=== PATIENT | female | born 1940 | race Caucasian/White ===

== ENCOUNTER 2023-10-14 14:08 | Inpatient (IN) | payer OTHER, SELFPAY ==
[2023-10-14] VITALS (24 sets, daily range): BP systolic 81–116; BP diastolic 58–89; PULSE 97–182; RESP 14–26; TEMP 35.8–37.3; O2SAT 92–98; BMI 17.2; BMI 16.6
--- NOTE | 2023-10-14 14:31 | CT_ITS ---
EXAM: CT ABDOMEN AND PELVIS WITH INTRAVENOUS CONTRAST CLINICAL INDICATION: abdominal pain TECHNIQUE: Helically acquired images were obtained of the abdomen and pelvis with intravenous contrast. This CT exam was performed using one or more of the following dose reduction techniques: automated exposure control, adjustment of the mA and/or kV according to patient size, and/or use of iterative reconstruction technique. CONTRAST: IV 75mL Isovue-300 RADIATION DOSE: CTDIvol = 10.83 mGy, DLP = 236.43 mGy-cm COMPARISON: No relevant prior studies available. FINDINGS: LOWER THORAX: Lung bases show fibrotic changes and possible mild infiltrates in both lung bases worse on the right. 6.6 cm heterogeneous mass in the right breast. Malignancy is possible. No cardiomegaly. No significant pericardial effusion. ABDOMEN: LIVER: Hepatomegaly. No focal mass. Otherwise unremarkable liver. GALLBLADDER AND BILE DUCTS: Unremarkable. No calcified gallstones. No gallbladder distention or wall edema. No intra- or extrahepatic biliary ductal dilation. PANCREAS: Unremarkable. No focal cystic or solid mass. SPLEEN: Unremarkable. Normal size without focal cystic or solid mass. ADRENALS: Unremarkable. No nodules. KIDNEYS AND URETERS: Unremarkable. Normal renal size and position. No hydronephrosis. STOMACH AND BOWEL: Evaluation of the GI tract is limited by absence of oral contrast. Cannot exclude stomach wall thickening. No dilated loops of bowel or evidence for obstruction. Cannot exclude segmental thickening of the schrader of the small or large bowel. Cannot exclude enteritis or colitis. Moderate diffuse fecal retention. Probable fecal impaction in the rectum. PELVIS: APPENDIX: No evidence of acute appendicitis. BLADDER: Unremarkable. REPRODUCTIVE: Atrophic uterus. ABDOMEN and PELVIS: INTRAPERITONEAL SPACE: Unremarkable. No ascites or other fluid collection. No free air. BONES/JOINTS: Degenerative changes throughout the spine. Compression fractures of T11, T12, L1, and L2 of indeterminate age. Mild dextroconvex scoliosis. No suspicious lytic or blastic abnormality. SOFT TISSUES: No discrete abdominal or pelvic wall hernia. VASCULATURE: Tortuous aorta with calcifications. No aneurysm. LYMPH NODES: Unremarkable. No enlarged lymph nodes. CT/Abdomen/Pelvis W IV Cont ONLY IMPRESSION: 1. Mass of the right breast. Malignancy is likely 2. Evaluation of the GI tract limited by absence of oral contrast. Fecal retention. Probable fecal impaction in the rectum. 3. Lung bases show fibrotic changes and possible mild infiltrates in both lung bases worse on the right. Electronically Signed: Jin Lewis MD at 16:59 EDT ,
--- NOTE | 2023-10-14 14:33 | EDS_ITS ---
HPI HPI - GI History of Present Illness Chief Complaint: GI Bleed Narrative Narrative: 83-year-old female presents with her family because of nausea, vomiting, and dark stool. Her history and physical is mildly limited secondary to her age and generalized weakness. Her family presents her because he states that yesterday and today she began having vomiting with coffee-ground emesis, and she has had episodes of dark stool, but not black. They had a doctor out to see her and they think that she might have a bleeding ulcer. They state that she is very weak and may also be dehydrated. They present her because they think that she might need transfusion of blood. Patient denies any chest pain or shortness of breath. States she is not really having abdominal pain currently. She is presenting more now for generalized weakness. [facility] Medical History (Updated 10/14/23 @ 18:02 by Nabil Cutler MD) Emphysema of lung Allergy/AdvReac Type Severity Reaction Status Date / Time No Known Allergies Allergy Verified 10/14/23 14:18 Social History Smoking Status: Never smoker ROS ROS ED ROS Narrative Provided by family more than patient. Constitutional: No fever, no chills. Positive generalized weakness. HEENT: No sore throat. No neck pain. No loss of vision. No rhinorrhea. Cardiovascular: No chest pain. No palpitations. No pedal edema. Respiratory: No cough, no shortness of breath. Abdominal: No abdominal pain. Positive nausea and vomiting for the last 24 hours, coffee-ground. Positive dark stool. Genitourinary: No dysuria. No hematuria. Musculoskeletal: No myalgias. No arthralgias. Neurologic: No headaches. No dizziness. No lightheadedness. Skin: No rash. No change in color. Psychiatric: No depression. No anxiety. EXAM Physical Exam Narrative Exam Narrative: Afebrile. Vital signs noted. Intermittently interactive. HEENT: Normocephalic. Atraumatic. PERRL, EOMI. Neck soft and supple. No point tenderness or step off. Dried blood bilateral nares. Cardiovascular: Positive tachycardia no murmurs, rubs, or gallops appreciated. Respiratory: No tachypnea. Lungs clear to auscultation bilaterally. Gastrointestinal: Abdomen soft, nontender, with normoactive bowel sounds. No rebound or guarding. Neurological: Awake intermittently. Alert. Nonfocal, nonlateralizing. Skin: No rash. Normal color. Mild pallor. Musculoskeletal: No pedal edema. Full range of motion extremities. Const Vital Signs: 10/14/23 14:12 10/14/23 15:00 10/14/23 15:30 Temperature 97.7 F L Temperature Source Oral Pulse Rate 131 H 127 H 182 H Respiratory Rate 15 24 H 26 H Blood Pressure 107/89 H 98/63 105/68 Blood Pressure Mean 95 73 80 Pulse Ox 94 97 Oxygen Delivery Method Room Air 10/14/23 15:30 10/14/23 15:45 10/14/23 16:00 Temperature Temperature Source Pulse Rate 143 H 122 H Respiratory Rate 25 H 25 H Blood Pressure 105/68 112/89 H 90/63 Blood Pressure Mean 80 98 73 Pulse Ox 94 98 Oxygen Delivery Method Room Air Room Air 10/14/23 16:15 10/14/23 16:30 10/14/23 16:45 Temperature Temperature Source Pulse Rate 127 H 119 H 106 H Respiratory Rate 21 H 25 H 24 H Blood Pressure 101/65 100/86 H 84/60 L Blood Pressure Mean 77 93 68 Pulse Ox 96 95 96 Oxygen Delivery Method Room Air Room Air 10/14/23 17:00 10/14/23 17:32 10/14/23 17:33 Temperature 99.1 F 99.1 F Temperature Source Oral Pulse Rate 105 H 114 H 114 H Respiratory Rate 22 H 19 H 19 H Blood Pressure 97/77 111/67 111/67 Blood Pressure Mean 83 81 81 Pulse Ox 95 97 94 Oxygen Delivery Method Room Air 10/14/23 17:34 Temperature Temperature Source Pulse Rate 114 H Respiratory Rate 19 H Blood Pressure 111/67 Blood Pressure Mean 81 Pulse Ox 94 Oxygen Delivery Method Room Air MDM MDM MDM Narrative Medical decision making narrative: Concern is for upper GI bleed versus dehydration. Patient is tachycardic. EKG was obtained and interpreted by myself independently which demonstrates sinus tachycardia with PVCs at 119 bpm but no acute ST changes. There is a right bundle branch block. No STEMI. Patient be bolused IV fluids. I do feel CT is indicated. I explained to the patient and her family that with concern for bleeding peptic ulcer that and she would need to be inserted as well. However, RN reported difficulty with patient coughing a lot with insertion of NG tube. They did place the NG tube and obtained a KUB. KUB interpreted by myself independently shows that the tip of the NG tube is just past the GE junction. I reviewed the radiology report which confirms my independent interpretation. However, RN had concern that it was not in the right place and did not aspirate gastric contents, so she pulled the NG. Patient is unable to tolerate placement. I reviewed her laboratory work and she has a slightly elevated white count of 13.5 which I think is nonspecific, hemoglobin does show anemia at 8.1 but I do not feel she requires an emergent transfusion, hematocrit 24.6. Platelet count normal at 216. Electrolyte panel is grossly unremarkable except for glucose of 121 with a normal anion gap of 5. BUN is elevated at 78 with a creatinine of 0.9 consistent with dehydration. This reflects in her lactic acidosis of 3.0. I do not feel that this is sepsis although she is meeting SIRS criteria with an elevated white count and a tach ycardia. Her repeat heart rate after bolus initially was 106. She will be bolused a second liter of intravenous fluids for her lactic acidosis. I reviewed the CT report which shows thickening of the stomach wall consistent with gastritis and possible thickening of the small bowel. There is a large amount of feces in the rectal area. Chaperoned rectal examination was performed and she does have very dark brown stool which was sent for occult blood. In review of the Hemoccult test, it is negative. At this point in time, she is a fluctuating blood pressure, I will draw blood cultures and administer Zosyn. However, I do not feel that she is meeting any source of sepsis as review of her urinalysis does not show infection. I discussed patient with Dr. Boykin who is comfortable with ad mission to the medical surgical floor. Patient is in stable condition. History & Record Review Discussion w/independent historian: Patient and Family Additional record(s) reviewed:: No prior records Lab Data Attestation: I reviewed the patient's lab results. Labs: Laboratory Results - last 24 hr 10/14/23 10/14/23 14:50 16:25 WBC 13.5 H RBC 2.61 L Hgb 8.1 L Hct 24.6 L MCV 94.3 MCH 31.0 MCHC 32.9 RDW Std Deviation 51.3 H RDW Coeff of John 14.9 H Plt Count 216 MPV 9.5 Immature Gran % (Auto) 0.600 Neut % (Auto) 81.5 H Lymph % (Auto) 12.6 L [place] % (Auto) 5.2 Eos % (Auto) 0.0 Baso % (Auto) 0.1 Absolute Neuts (auto) 11.0 H Absolute Lymphs (auto) 1.71 Nucleated RBC % 0 Sodium 136 Potassium 4.4 Chloride 103 Carbon Dioxide 28.0 Anion Gap 5 BUN 78 H Creatinine 0.91 Estim Creat Clear Calc 34.61 Est GFR (MDRD) Af Amer 76 Est GFR (MDRD) Non-Af 63 BUN/Creatinine Ratio 86.1 H Glucose 121 H Lactic Acid 3.0 H* Calcium 8.7 Total Bilirubin 0.30 AST 22 ALT 20 Alkaline Phosphatase 36 L Total Protein 6.1 L Albumin 2.6 L Globulin 3.5 Albumin/Globulin Ratio 0.7 L Urine Color Straw Urine Clarity Clear Urine pH 5.0 Ur Specific [place] 1.010 Urine Protein Negative Urine Glucose (UA) Normal Urine Ketones Negative Urine Occult Blood Negative Urine Nitrite Negative Urine Bilirubin Negative Urine Urobilinogen Normal Ur Leukocyte Esterase Negative Urine RBC 0 SEEN Urine WBC 0 SEEN Ur Squamous Epith Cells 0 SEEN Urine Bacteria 0 SEEN Urine Mucus 0 SEEN Radiography Diagnostic Testing: Clinical Impression(s) from Imaging Studies Abdomen/Pelvis CT 10/14/23 14:31 IMPRESSION: 1. Mass of the right breast. Malignancy is likely 2. Evaluation of the GI tract limited by absence of oral contrast. Fecal retention. Probable fecal impaction in the rectum. 3. Lung bases show fibrotic changes and possible mild infiltrates in both lung bases worse on the right. Electronically Signed: Jin Lewis MD at 16:59 EDT , KUB X-Ray 10/14/23 15:20 IMPRESSION: The tip of the orogastric tube is in the body of the stomach just distal to the gastroesophageal junction. Electronically Signed: Ottoniel Jackson MD at 15:41 EDT , Discharge Plan Dx/Rx/DC Orders Clinical Impression: Generalized weakness, Lactic acidosis, Gastritis, Nausea and vomiting, Dehydration Disposition Disposition: Acute Care Hospital [facility]
[2023-10-14] MEDS: 0.9% Normal Saline (1000mL) 1,000 ML 1000 ML IV (14:55)
[2023-10-14 15:04] LABS: Absolute Lymphocyte Count 1.71 X10^3/uL (0.83-4.51); Basophil# 0.02 X10^3/uL; Basophil% 0.1 % (0-1); Hematocrit 24.6 % (37-47); Hemoglobin 8.1 g/dL (12.0-15.0); Lymphocyte # 1.71 X10^3/ul (0.83-4.51); Lymphocyte % 12.6 % (19-41); Mean Corp Hgb Conc 32.9 g/dL (32-36); Mean Corpuscular Volume 94.3 fL (81-99); Mean Platelet Vol. 9.5 fl (6.2-12.0); Monocyte% 5.2 % (0-10); NRBC Flagged by Analyzer 0 % (0-5); Neutrophil # 11.01 X10^3/uL (2.7-7.7); Neutrophil % 81.5 % (47-70); Platelet Count 216 K/mm3 (150-450); RBC Distribution Width CV 14.9 % (11.6-14.6); RBC Distribution Width SD 51.3 fl (35.1-43.9); Red Blood Count 2.61 M/mm3 (4.2-5.4); White Blood Count 13.5 K/mm3 (4.4-11.0)
[2023-10-14] MEDS: Oxymetazoline 0.05% 1 SPRAY SPRAY.BTL 2 SPRAY NASAL (15:20)
--- NOTE | 2023-10-14 15:20 | RAD_ITS ---
STUDY: X-RAY - ABDOMEN/PELVIS REASON FOR EXAM: Female, 83 years old. Tube placement -- KUB with both diaphragms for NG/OG Verification TECHNIQUE: AP supine and decubitus views of the abdomen and pelvis. COMPARISON: None. FINDINGS: An orogastric tube is seen with the tip in the body of the stomach just distal to the gastroesophageal junction. Mild increased markings in the upper lobes suggestive scarring. RAD/Abdomen Single View (Portable) IMPRESSION: The tip of the orogastric tube is in the body of the stomach just distal to the gastroesophageal junction. Electronically Signed: Ottoniel Jackson MD at 15:41 EDT ,
[2023-10-14 15:26] LABS: ALB/GLOB Ratio 0.7 RATIO (0.9-2.4); AST(SGOT) 22 U/L (15-37); Alanine Aminotransfer ALT/SGPT 20 U/L (13-56); Albumin, Serum 2.6 g/dL (3.2-5.0); Alkaline Phosphatase 36 U/L (45-117); Anion Gap 5 (5-15); BUN 78 mg/dL (7-18); BUN/Creat Ratio 86.1 RATIO (10-20); Calcium,Total 8.7 mg/dL (8.5-10.1); Chloride 103 mmol/L (98-107); Creatinine, Serum 0.91 mg/dL (0.55-1.02); EST Glomerular Filtration Rate 63 mL/min (>60); Est Glom Filt Rate - Afr Amer 76 mL/min (>60); Estimated Creatinine Clearance 34.61 ml/min; Globulin 3.5 g/dL (2.2-4.2); Glucose 121 mg/dL (74-106); Potassium 4.4 mmol/L (3.5-5.1); Protein, Total 6.1 g/dL (6.4-8.2); Sodium Level 136 mmol/L (136-145)
--- NOTE | 2023-10-14 15:41 | ED.RN ---
ATTEMPTED TO PLACE NG UNSUCCESSFULLY, PT UNABLE TO SWALLOW ON COMMAND, MD AWARE
--- NOTE | 2023-10-14 16:10 | EKG12_ITS ---
Test Reason : FALL Blood Pressure : / mmHG Vent. Rate : 119 BPM Atrial Rate : 119 BPM P-R Int : 144 ms QRS Dur : 118 ms QT Int : 324 ms P-R-T Axes : 069 266 048 degrees QTc Int : 455 ms Sinus tachycardia with occasional Premature ventricular complexes and Fusion complexes Right bundle branch block Possible Lateral infarct , age undetermined Abnormal ECG Confirmed by Mayank Butt ([id number]), online editor CHHAYA DINH ([id number]) on 10/16/2023 7:17:55 AM Referred By: JOSE Confirmed By:Mayank Butt
--- NOTE | 2023-10-14 16:21 | ED.RN ---
NO OLD EKG
[2023-10-14 16:37] LABS: Bacteria 0 SEEN /hpf (None Seen); Mucous, Urine 0 SEEN /hpf (<or=2+); Red Blood Cells-Urine 0 SEEN /hpf (0-5); Squamous Epithelial Cells - UA 0 SEEN /hpf (5-10); White Blood Cells 0 SEEN /hpf (0-5)
[2023-10-14] MEDS: 0.9% Normal Saline (1000mL) 1,000 ML 999 ML IV (16:50)
[2023-10-14 16:55] LABS: Color, Urine Straw (Yellow); Glucose, Dipstick Normal (Normal); Ketone-Dipstick Negative (Negative); Leukocyte Esterase-Dipstick Negative /ul (Negative); Nitrite-Dipstick Negative (Negative); Occult Blood-Urine Negative /ul (Negative); Protein-Dipstick Negative (Negative); Urine Bilirubin Dipstick Negative (Negative); Urine Clarity Clear (Clear); Urine Urobilinogen Normal (Normal)
[2023-10-14] MEDS: Piperacil/Tazobactam 3.375 GM in 0.9% Normal Saline (50mL MB+) 50 ML IV (18:21)
[2023-10-14 19:00] LABS: Reflex Lactate? Y
--- NOTE | 2023-10-14 19:33 | PCM.HP.STD ---
HPI - General General Date of Admission: 10/14/23 HPI Narrative TORI ROSS, is a 83 F who presents to the hospital from home after dark bowel movement as well as coffee-ground emesis. Apparently she had an episode of coffee-ground emesis last evening and this morning family noticed dark stools. Family is also stated that she does appear little pale and so they presented to the hospital for possible transfusions. Fecal occult was negative in the ER and her hemoglobin is 8.1, we do not have a prior to check however she has been tachycardic and there is some concern for sepsis though there is currently no signs of infection her lactic acid was 3 and she was given a dose of Zosyn in the ER. Urine studies are negative, CT of the abdomen pelvis was negative for any significant intra-abdominal pathology however was noted that there is a mass in her right breast consistent with malignancy which the ED physician discussed with family. Lung bases appear fibrotic she is not hypoxic or requiring any oxygen. She is on daily Bactrim for emphysema according to the family. Of note her creatinine was normal but her BUN was 78 consistent with possible upper GI bleed [facility] Medical History Depression Emphysema of lung GI bleed Irregular heart beat Non-smoker Home Medications brimonidine 0.2 % eye drops 2 drp ophthalmic (eye) BID 10/14/23 [History Last Taken Unknown] latanoprost 0.005 % eye drops 1 drp ophthalmic (eye) DAILY 10/14/23 [History Last Taken Unknown] sulfamethoxazole 400 mg-trimethoprim 80 mg tablet (Bactrim) 1 tab PO DAILY emphysema 10/14/23 [History Last Taken Unknown] timolol maleate 0.5 % eye drops 1 drp ophthalmic (eye) BID 10/14/23 [History Last Taken Unknown] Allergy/AdvReac Type Severity Reaction Status Date / Time No Known Allergies Allergy Verified 10/14/23 14:18 Family History (Updated 10/14/23 @ 19:[address] Indra Boykin MD) Other Cancer Surgical History (Updated 10/14/23 @ 19:[address] Indra Boykin MD) History of tonsillectomy Social History Smoking Status: Never smoker ROS Constitutional Constitutional: Reports weakness; Denies chills, fatigue, fever(s) or malaise Eyes Eyes: Denies blurry vision ENT HEENT: Denies headache(s) or nasal discharge Cardiovascular Cardiovascular: Denies chest pain, dyspnea on exertion or syncope Respiratory/Chest Respiratory/Chest: Denies cough, shortness of breath at rest or shortness of breath with exertion Gastrointestinal Gastrointestinal: Reports coffee ground emesis and melena; Denies constipation, diarrhea, nausea or vomiting Genitourinary Genitourinary: Denies dysuria Neurologic Neurologic: Denies focal weakness, numbness or tremor(s) Psychiatric Psychiatric: Denies anxiety or depression Vital Signs Vital Signs Vital Signs: 10/14/23 14:12 10/14/23 15:00 10/14/23 15:30 Temperature 97.7 F L Temperature Source Oral Pulse Rate 131 H 127 H 182 H Respiratory Rate 15 24 H 26 H Blood Pressure 107/89 H 98/63 105/68 Blood Pressure Mean 95 73 80 Pulse Ox 94 97 Oxygen Delivery Method Room Air 10/14/23 15:30 10/14/23 15:45 10/14/23 16:00 Temperature Temperature Source Pulse Rate 143 H 122 H Respiratory Rate 25 H 25 H Blood Pressure 105/68 112/89 H 90/63 Blood Pressure Mean 80 98 73 Pulse Ox 94 98 Oxygen Delivery Method Room Air Room Air 10/14/23 16:15 10/14/23 16:30 10/14/23 16:45 Temperature Temperature Source Pulse Rate 127 H 119 H 106 H Respiratory Rate 21 H 25 H 24 H Blood Pressure 101/65 100/86 H 84/60 L Blood Pressure Mean 77 93 68 Pulse Ox 96 95 96 Oxygen Delivery Method Room Air Room Air 10/14/23 17:00 10/14/23 17:32 10/14/23 17:33 Temperature 99.1 F 99.1 F Temperature Source Oral Pulse Rate 105 H 114 H 114 H Respiratory Rate 22 H 19 H 19 H Blood Pressure 97/77 111/67 111/67 Blood Pressure Mean 83 81 81 Pulse Ox 95 97 94 Oxygen Delivery Method Room Air 10/14/23 17:34 10/14/23 18:37 10/14/23 18:52 Temperature 99.0 F 99.0 F Temperature Source Temporal Axillary Pulse Rate 114 H 109 H 119 H Respiratory Rate 19 H 22 H 24 H Blood Pressure 111/67 104/66 91/62 Blood Pressure Mean 81 78 71 Pulse Ox 94 96 94 Oxygen Delivery Method Room Air Room Air Room Air 10/14/23 17:00 10/14/23 17:15 10/14/23 17:30 Temperature Temperature Source Pulse Rate 119 H 117 H Respiratory Rate 23 H 24 H Blood Pressure 97/77 112/65 111/63 Blood Pressure Mean 85 79 77 Pulse Ox 97 Oxygen Delivery Method 10/14/23 17:45 10/14/23 18:00 10/14/23 18:15 Temperature Temperature Source Pulse Rate 123 H 118 H 115 H Respiratory Rate 15 19 H 20 H Blood Pressure 97/71 116/84 H 97/84 H Blood Pressure Mean 80 94 91 Pulse Ox 95 96 Oxygen Delivery Method Room Air 10/14/23 18:30 Temperature Temperature Source Pulse Rate 122 H Respiratory Rate 24 H Blood Pressure 104/66 Blood Pressure Mean 78 Pulse Ox 96 Oxygen Delivery Method Room Air Weight Weight: 100 lb Body Mass Index (BMI) 16.6 Physical Exam Narrative General: Alert, Oriented x3, Cooperative, No apparent distress HEENT: Atraumatic, PERRLA, EOMI, Normocephalic, hard of hearing Oral: Moist Mucosa Neck: Supple, No JVD Lungs: Diminished, Normal air movement, No rhonchi, No wheeze, No rales, tachypneic Cardiovascular: Tachycardic, Regular Rhythm, Normal S1, Normal S2, No murmurs Abdomen: Soft, Non Tender, Non-Distended, No Hepato-splenomegaly Extremities: No edema, Capillary Refill Less than 3 Seconds Skin: No rashes, No breakdown, pale. Right breast mass Musculoskeletal: No Tenderness to Palpation of Joints or Extremities Neurological: No focal neurological deficits, Motor Exam 5/5 strength throughout, Sensory exam intact to light touch and pain Psych/Mental Status: Normal Affect, Appropriate Results Lab / Micro Data 10/14/23 14:50 10/14/23 14:50 Labs: Laboratory Results - last 24 hr 10/14/23 14:50: WBC 13.5 H, RBC 2.61 L, Hgb 8.1 L, Hct 24.6 L, MCV 94.3, MCH 31.0, MCHC 32.9, RDW Std Deviation 51.3 H, RDW Coeff of John 14.9 H, Plt Count 216, MPV 9.5, Immature Gran % (Auto) 0.600, Neut % (Auto) 81.5 H, Lymph % (Auto) 12.6 L, [place] % (Auto) 5.2, Eos % (Auto) 0.0, Baso % (Auto) 0.1, Absolute Neuts (auto) 11.0 H, Absolute Lymphs (auto) 1.71, Nucleated RBC % 0, Sodium 136, Potassium 4.4, Chloride 103, Carbon Dioxide 28.0, Anion Gap 5, BUN 78 H, Creatinine 0.91, Estim Creat Clear Calc 34.61, Est GFR (MDRD) Af Amer 76, Est GFR (MDRD) Non-Af 63, BUN/Creatinine Ratio 86.1 H, Glucose 121 H, Lactic Acid 3.0 H*, Calcium 8.7, Total Bilirubin 0.30, AST 22, ALT 20, Alkaline Phosphatase 36 L, Total Protein 6.1 L, Albumin 2.6 L, Globulin 3.5, Albumin/Globulin Ratio 0.7 L 10/14/23 16:25: Urine Color Straw, Urine Clarity Clear, Urine pH 5.0, Ur Specific [place] 1.010, Urine Protein Negative, Urine Glucose (UA) Normal, Urine Ketones Negative, Urine Occult Blood Negative, Urine Nitrite Negative, Urine Bilirubin Negative, Urine Urobilinogen Normal, Ur Leukocyte Esterase Negative, Urine RBC 0 SEEN, Urine WBC 0 SEEN, Ur Squamous Epith Cells 0 SEEN, Urine Bacteria 0 SEEN, Urine Mucus 0 SEEN Micro: Microbiology 10/14/23 16:25 Stool Stool Occult Blood (CHRISS) - Final Imaging Radiology Impression Abdomen/Pelvis CT 10/14/23 14:31 IMPRESSION: 1. Mass of the right breast. Malignancy is likely 2. Evaluation of the GI tract limited by absence of oral contrast. Fecal retention. Probable fecal impaction in the rectum. 3. Lung bases show fibrotic changes and possible mild infiltrates in both lung bases worse on the right. Electronically Signed: Jin Lewis MD at 16:59 EDT , KUB X-Ray 10/14/23 15:20 IMPRESSION: The tip of the orogastric tube is in the body of the stomach just distal to the gastroesophageal junction. Electronically Signed: Ottoniel Jackson MD at 15:41 EDT , Assessment & Plan Assessment/Plan (1) Breast lump or mass: (2) Gastritis: PLAN: Plan 1. Anemia with upper GI bleed ? Since we do not have a baseline for her hemoglobin unclear if this is acute blood loss anemia or a chronic anemia from an iron deficiency or something of that nature ? Will put her on a clear liquid diet ? Will repeat H&H at 8 PM ? Will place her on IV PPI ? Will consult GI for possible EGD ? Fecal occult was negative for blood 2. Right breast mass ? This was seen on CT scan of her abdomen and pelvis ? May need dedicated imaging as an outpatient 3. Emphysema ? As she is on a baseline Bactrim ? Given the potential for GI bleed I think a lot of her vital sign derangement is not due to sepsis or infection but due to GI bleeding ? Will hold off on any further antibiotics and monitor her white blood cell count if it continues to rise may indicate the need for empiric more broad-spectrum antibiotics but at this time she remains afebrile with no clear sign of infection DVT: SCDs 76 minutes was spent on direct patient care, including documentation as well as chart review and collaboration with colleagues Charges/Coding Visit Charges Inpatient E&M: 25662 Init Hosp L3
[2023-10-14 20:14] LABS: Lactic Acid 2.2 mmol/L (0.4-1.9)
[2023-10-14 20:35] LABS: Hematocrit 19.3 % (37-47); Hemoglobin 6.1 g/dL (12.0-15.0)
[2023-10-14] MEDS: Pantoprazole Sodium 40 MG in 0.9% Normal Saline (100mL MB+) 100 ML 330 MG IV (21:30)
--- NOTE | 2023-10-14 23:00 | CON.PCM.GI_ITS ---
HPI Consult Data Date of Consult: 10/15/23 HPI Narrative Reason for Consultation: GI bleed HPI Narrative: TORI ROSS, is a 83-year-old female presents with her family because of nausea, vomiting, and dark stool. Her history and physical is mildly limited secondary to her age and generalized weakness. Her family presents her because he states that yesterday and today she began having vomiting with coffee-ground emesis, and she has had episodes of dark stool, but not black . They had a doctor out to see her and they think that she might have a bleeding ulcer. They state that she is very weak and may also be dehydrated. They present her because they think that she might need transfusion of blood. Patient denies any chest pain or shortness of breath. States she is not really having abdominal pain currently. She is presenting more now for generalized weakness. In the ER and her hemoglobin is 8.1, we do not have a prior to check however she has been tachycardic and there is some concern for sepsis though there is curren tly no signs of infection her lactic acid was 3 and she was given a dose of Zosyn in the ER. Urine studies are negative, CT of the abdomen pelvis was negative for any significant intra-abdominal pathology however was noted that there is a mass in her right breast consistent with malignancy which the ED physician discussed with family. Lung bases appear fibrotic she is not hypoxic or requiring any oxygen. She is on daily Bactrim for emphysema according to the family. Of note her creatinine was normal but her BUN was 78 consistent with possible upper GI bleed [facility] Medical History Depression Emphysema of lung GI bleed Irregular heart beat Non-smoker Home Medications brimonidine 0.2 % eye drops 2 drp ophthalmic (eye) BID 10/14/23 [History Last Taken Unknown] latanoprost 0.005 % eye drops 1 drp ophthalmic (eye) DAILY 10/14/23 [History Last Taken Unknown] sulfamethoxazole 400 mg-trimethoprim 80 mg tablet (Bactrim) 1 tab PO DAILY emphysema 10/14/23 [History Last Taken Unknown] timolol maleate 0.5 % eye drops 1 drp ophthalmic (eye) BID 10/14/23 [History Last Taken Unknown] Allergy/AdvReac Type Severity Reaction Status Date / Time No Known Allergies Allergy Verified 10/14/23 14:18 Family History (Updated 10/14/23 @ 19:[address] Indra Boykin MD) Other Cancer Surgical History (Updated 10/14/23 @ 19:[address] Indra Boykin MD) History of tonsillectomy Social History Smoking Status: Never smoker ROS Constitutional Constitutional: Reports weakness; Denies chills, fatigue, fever(s) or malaise Eyes Eyes: Denies blurry vision ENT HEENT: Denies headache(s) or nasal discharge Cardiovascular Cardiovascular: Denies chest pain, dyspnea on exertion or syncope Respiratory/Chest Respiratory/Chest: Denies cough, shortness of breath at rest or shortness of breath with exertion Gastrointestinal Gastrointestinal: Reports coffee ground emesis and melena; Denies constipation, diarrhea, nausea or vomiting Genitourinary Genitourinary: Denies dysuria Neurologic Neurologic: Denies focal weakness, numbness or tremor(s) Psychiatric Psychiatric: Denies anxiety or depression Physical Exam Narrative General: Alert, Oriented x3, Cooperative, No apparent distress HEENT: Atraumatic, PERRLA, EOMI, Normocephalic, hard of hearing Oral: Moist Mucosa Neck: Supple, No JVD Lungs: Diminished, Normal air movement, No rhonchi, No wheeze, No rales, tachypneic Cardiovascular: Tachycardic, Regular Rhythm, Normal S1, Normal S2, No murmurs Abdomen: Soft, Non Tender, Non-Distended, No Hepato-splenomegaly Extremities: No edema, Capillary Refill Less than 3 Seconds Skin: No rashes, No breakdown, pale. Right breast mass Musculoskeletal: No Tenderness to Palpation of Joints or Extremities Neurological: No focal neurological deficits, Motor Exam 5/5 strength thro ughout, Sensory exam intact to light touch and pain Psych/Mental Status: Normal Affect, Appropriate Medical Records Data Medical Nutrition Assessment Dietitian: Malnutrition Criteria Met Start: 10/15/23 13:56 Freq: Status: Active Protocol: Document 10/15/23 13:56 RMA (Rec: 10/15/23 13:56 RMA [id number]) Nutrition Malnutrition Evidence of Malnutrition Exists Yes Malnutrition (severe): Acute Illness/Injury,Chronic Evidenced By Suboptimal Energy Intake ( Severe),Weight Loss (Moderate) ,Physical Changes (Severe) Intake Problem Inadequate Oral Intake Etiology related to altered GI function /bleed Signs/Symptoms as evidenced by NPO Status Active Problem Clinical Problem Acute Disease or Injury Related Malnutrition Etiology severe pro-elo malnutrition in the context of acute on chronic disease related to increased energy expenditure and inadequate oral intake Signs/Symptoms as evidenced by BMI 16.6, PO meeting less than 50% estimated nutrition needs x 2 weeks, BLLE 2+ pitting edema likely masking additional weight loss and muscle wasting /fat depletion in the face, orbitals, clavicle, arms and legs. Status Active Problem Recommendation Dietitian Recommendations/Changes Recommend advance PO as tolerated to transitional diet with goal of liberalized regular diet. Offer ONS ensure clear vs. ensure plus HP w/ medpass 4 times per day as diet advanced from NPO. Adjust ONS to optimize oral intake as diet advanced from NPO. Follow weight trends as available. Lab / Micro Data 10/15/23 07:15 10/15/23 07:15 Labs: Laboratory Results - last 24 hr 10/14/23 14:50: Sodium 136, Potassium 4.4, Chloride 103, Carbon Dioxide 28.0, Anion Gap 5, BUN 78 H, Creatinine 0.91, Estim Creat Clear Calc 34.61, Est GFR (MDRD) Af Amer 76, Est GFR (MDRD) Non-Af 63, BUN/Creatinine Ratio 86.1 H, Glucose 121 H, Lactic Acid 3.0 H*, Calcium 8.7, Total Bilirubin 0.30, AST 22, ALT 20, Alkaline Phosphatase 36 L, Total Protein 6.1 L, Albumin 2.6 L, Globulin 3.5, Albumin/Globulin Ratio 0.7 L 10/14/23 16:25: Urine Color Straw, Urine Clarity Clear, Urine pH 5.0, Ur Specific Calvert 1.010, Urine Protein Negative, Urine Glucose (UA) Normal, Urine Ketones Negative, Urine Occult Blood Negative, Urine Nitrite Negative, Urine Bilirubin Negative, Urine Urobilinogen Normal, Ur Leukocyte Esterase Negative, Urine RBC 0 SEEN, Urine WBC 0 SEEN, Ur Squamous Epith Cells 0 SEEN, Urine Bacteria 0 SEEN, Urine Mucus 0 SEEN 10/14/23 19:35: Lactic Acid 2.2 H* 10/14/23 20:20: Hgb 6.1 L, Hct 19.3 L 10/14/23 21:23: Antibody Screen NEGATIVE, Crossmatch See Detail 10/15/23 07:15: WBC 11.6 H, RBC 3.10 L, Hgb 9.0 L, Hct 27.6 L, MCV 89.0 D, MCH 29.0, MCHC 32.6, RDW Std Deviation 51.5 H, RDW Coeff of John 16.4 H, Plt Count 138 L, MPV 10.2, Immature Gran % (Auto) 0.600, Neut % (Auto) 78.6 H, Lymph % (Auto) 13.[address] L, [place] % (Auto) 7.1, Eos % (Auto) 0.0, Baso % (Auto) 0.1, Absolute Neuts (auto) 9.1 H, Absolute Lymphs (auto) 1.58, Nucleated RBC % 0, Sodium 144, Potassium 4.1, Chloride 115 H, Carbon Dioxide 25.0, Anion Gap 4 L, BUN 51 H, Creatinine 0.73, Estim Creat Clear Calc 38.15, Est GFR (MDRD) Af Amer 99, Est GFR (MDRD) Non-Af 81, BUN/Creatinine Ratio 70.2 H, Glucose 98, Calcium 7.9 L Micro: Microbiology 10/14/23 16:25 Stool Stool Occult Blood (CHRISS) - Final Imaging Radiology Impression Abdomen/Pelvis CT 10/14/23 14:31 IMPRESSION: 1. Mass of the right breast. Malignancy is likely 2. Evaluation of the GI tract limited by absence of oral contrast. Fecal retention. Probable fecal impaction in the rectum. 3. Lung bases show fibrotic changes and possible mild infiltrates in both lung bases worse on the right. Electronically Signed: Jin Lewis MD at 16:59 EDT , KUB X-Ray 10/14/23 15:20 IMPRESSION: The tip of the orogastric tube is in the body of the stomach just distal to the gastroesophageal junction. Electronically Signed: Ottoniel Jackson MD at 15:41 EDT , Assessment & Plan Assessment/Plan (1) Breast lump or mass: (2) Gastritis: PLAN: Plan Chronic anemia with upper GI bleed ? She will undergo an upper endoscopy. If the upper endoscopy is negative then she would likely need a colonoscopy for evaluation of her GI tract for her likely chronic anemia. Her BUN to creatinine ratio is elevated which makes you more suspicious for an upper GI bleed. She was explained alternatives, risk, benefits include not withstanding bleeding, infection, sepsis, perforation, need for emergent surgery and . She will have an ASA of 3 Charges/Coding Visit Charges Inpatient E&M: 00064 Init Hosp L3
[2023-10-15] VITALS (16 sets, daily range): BP systolic 88–121; BP diastolic 55–88; PULSE 76–110; RESP 14–18; TEMP 35.8–36.9; O2SAT 93–100
[2023-10-15 08:03] LABS: Absolute Lymphocyte Count 1.58 X10^3/uL (0.83-4.51); Absolute Neutrophil Count 9.1 X10^3/uL (2.0-7.7); Basophil# 0.01 X10^3/uL; Basophil% 0.1 % (0-1); Hematocrit 27.6 % (37-47); Lymphocyte # 1.58 X10^3/ul (0.83-4.51); Lymphocyte % 13.6 % (19-41); Mean Corp Hgb Conc 32.6 g/dL (32-36); Mean Platelet Vol. 10.2 fl (6.2-12.0); Monocyte# 0.82 X10^3/uL; Monocyte% 7.1 % (0-10); NRBC Flagged by Analyzer 0 % (0-5); Neutrophil # 9.13 X10^3/uL (2.7-7.7); Neutrophil % 78.6 % (47-70); Platelet Count 138 K/mm3 (150-450); RBC Distribution Width CV 16.4 % (11.6-14.6); RBC Distribution Width SD 51.5 fl (35.1-43.9); White Blood Count 11.6 K/mm3 (4.4-11.0)
[2023-10-15 08:57] LABS: Anion Gap 4 (5-15); BUN 51 mg/dL (7-18); BUN/Creat Ratio 70.2 RATIO (10-20); Calcium,Total 7.9 mg/dL (8.5-10.1); Chloride 115 mmol/L (98-107); Creatinine, Serum 0.73 mg/dL (0.55-1.02); EST Glomerular Filtration Rate 81 mL/min (>60); Est Glom Filt Rate - Afr Amer 99 mL/min (>60); Estimated Creatinine Clearance 38.15 ml/min; Glucose 98 mg/dL (74-106); Potassium 4.1 mmol/L (3.5-5.1); Sodium Level 144 mmol/L (136-145)
[2023-10-15] MEDS: Pantoprazole Sodium 40 MG in 0.9% Normal Saline (100mL MB+) 100 ML 330 MG IV ×2 (09:56→20:06)
--- NOTE | 2023-10-15 12:50 | CASEMGMT ---
RN?CM?TANK [employer]?CM?to room to meet with patient and several family members who are at bedside for initial transition planning/care coordination?assessment.?RN?CM?introduced self and role at [facility].? Pt resting in bed in no distress. Pt's primary language is [place], pt is [facility], and family states she has a difficulty understanding, so information provided from family. Care providers, pharmacy, and demographics verified/updated at this time. PCP: Dr Horn Specialists: none Preferred Pharmacy: [facility] Retail Insurance: [employer] Prescription Benefit:?none LNOK: , Neil. 6 sons and 1 daughter. Living Arrangements: Lives w/her in one-level home w/3 steps to enter. Son, RENETTA, and their 11 children live in home connected to pt and her . Pt has difficulty w/the stairs into the home and family assists her. Pt only able to take a few steps w/family assist and use of cane or walker. Otherwise, she uses a W/C to get around. Pt able to sponge-bath self and able to dress herself when @ her baseline and manages her own medications. Family does the laundry and makes breakfast and pt usually prepares lunch and dinner. Transportation:?Hire drivers. DME: Pt has the following DME:?BSC, cane, walker, W/C. ?Family states no need for further DME at this time.? HHC/SNF: No hx of either. Discussed discharge planning and discussed SNF vs HHC. Family prefers to take pt home and state they can provide 2 assist (or more) /, if needed. They are aware therapy will work w/pt and will make recommendations. Family made aware, when they observe pt working w/therapy, to let SW/CM know if they feel pt is too weak for them to care for her @ home. They may be interested in HHC, but not sure yet. They plan to talk w/pt and discuss her wishes as well. PLAN:??TBD by progress w/therapy. Family would like to take pt home and may consider HHC. CM to follow. Kody BSN?RN?CM
[2023-10-15] MEDS: Lactated Ringers 1,000 ML 15 ML IV (13:39)
--- NOTE | 2023-10-15 14:00 | EGD_PTH ---
PATIENT: TORI ROSS LOC: [facility] U#:[id number] AGE/SX: 83/F ROOM: [facility] RE10/14/[address]: Dr. Donnie Palomo DO : 1940 BED: 1 DIS: 10/16/2023 SPEC #: [id number] RECD: 10/16/23 10:19 STATUS: NANCY REOmaira #: [id number] TIERNEY: 10/15/23 14:[address]: Ra Enrriquehsaan DEPT: SURGICAL PATHOLOGY RECD BY: Gabby Edmondson ENTERED: 10/16/23 10:20 SP TYPE: EGD BIOPSY OTHR DR: DO Dr. José Miguel Delaney, DO Dr. Indra Boykin MD Tissues: Gastric mucous membrane Procedures: Special Stain Group I Surgery Specimen Level IV GMS Stain (control) Comments: @ Ordering doctor for SUIV edited from to @ by TIM at 10/19/23 08 @ Submitting doctor edited from to @ by TIM at 10/19/23824 HEADER OPERATION: EGD with biopsy PRE-OP DIAGNOSIS: Anemia with upper GI bleed, gastritis TISSUE SUBMITTED: Gastric ulcer biopsy MICROSCOPIC DIAGNOSIS Gastric ulcer, biopsy: Fragments of gastric mucosa with focal ulceration, moderate acute and chronic inflammation and fibrinopurulent exudation. See comment. MAY/ 10/19/23 COMMENT Special stain for fungi is positive for numerous organisms (yeast and pseudohyphae) consistent with Nicci species in the fibrinopurulent exudates; matched control is appropriate. The results of immunohistochemistry for Helicobacter pylori will be reported separately ([id number]). This case has been reviewed in consultation with Dr. Werner who concurs with the above diagnosis. MICROSCOPIC DESCRIPTION Slides are reviewed. GROSS DESCRIPTION Received in fixative is one container labeled with the patient's name and designated gastric ulcer biopsy. The specimen consists of multiple irregular fragments of light sandy soft tissue that in aggregate measure 1.5 x 0.5 x 0.1 cm. The specimen is totally submitted in one cassette. MAY/ 10/16/23 TC:2 CPT:78321 ,58360
--- NOTE | 2023-10-15 14:00 | IMM_PTH ---
PATIENT: TORI ROSS LOC: [facility] U#:[id number] AGE/SX: 83/F ROOM: [facility] RE10/14/[address]: Dr. Donnie Palomo DO : 1940 BED: 1 DIS: 10/16/2023 SPEC #: [id number] RECD: 10/16/23 15:03 STATUS: SOUKye REQ #: [id number] TIERNEY: 10/15/23 14:[address]: Javier Osuna DEPT: IMMUNOHISTOCHEMISTRY RECD BY: Henry Castelan ENTERED: 10/16/23 15:04 SP TYPE: IMMUNO OTHR DR: DO Dr. José Miguel Delaney, DO Dr. Indra Boykin MD Tissues: Stomach, NOS Procedures: H Pylori (initial) Comments: @ Ordering doctor for H.PYLORI edited from to @ by TIM at 10/16/23 1514 @ Submitting doctor edited from to @ by TIM at 10/16/23 1514 PHYSICIAN & [place] [id number] SPECIMEN INFORMATION: Tissue Source: Gastric ulcer biopsy Clinical Info: Anemia with upper GI bleed, Gastritis Specimen Number: [id number] CPT code: 08382 METHODOLOGY: Deparaffinized sections of prefer/formalin-fixed tissue or PAP/DQ stained slides are incubated with monoclonal/polyclonal antibodies/oligonucleotide probes. Localization is made via biotin free immunoperoxidase method. Appropriate controls are performed and reacted as expected. Results on target cell population are indicated in the following table: RESULTS: ANTIBODY / CLONE RESULT H Pylori (polyclonal) negative These tests were developed and their performance characteristics determined by [facility]. They may not have been cleared or approved by the U.S. Food and Drug Administration. The FDA has determined that such clearance or approval is not necessary. The above immunohistochemical/dualISH markers are ordered and reviewed by the Pathologist. INTERPRETATION: Gastric ulcer, biopsy: Negative for Helicobacter pylori organisms. MAY/ 10/19/23
--- NOTE | 2023-10-15 15:48 | OP.CCLET_ITS ---
10/15/2023 José Miguel Horn Re : Upper GI endoscopy procedure for Melina Mccarty Dear Justina This procedure was performed on October. My impressions and recommendations are as follows: Impressions : - Normal esophagus. - Non-bleeding gastric ulcer with no stigmata of bleeding. Biopsied. - Oozing gastric ulcers with pigmented material. Injected. Treated with a heater probe. - Normal first portion of the duodenum. Recommendations : - Return patient to hospital dennison for ongoing care. - Full liquid diet for 4 days. - Continue present medications. - Await pathology results. - Repeat upper endoscopy in 3 months for surveillance. My findings are described in the full procedure note, which is enclosed. If I can be of further assistance, please feel free to contact me at . Sincerely, Javier Osuna, 10/15/2023 3:47:21 PM This report has been signed electronically.
--- NOTE | 2023-10-15 15:48 | OP.EGD_ITS ---
Patient Name: Melina Mccarty Procedure Date: 10/15/2023 3:13 PM Date of : 1940 Age: 83 Procedure: Upper GI endoscopy Indications: Epigastric abdominal pain, Coffee-ground emesis Providers: Javier Osuna DO Medicines: Monitored Anesthesia Care Patient Profile: This is an 83 year old female. Refer to note in patient chart for documentation of history and physical. Patient has symptoms of acute epigastric abdominal pain. Complications: No immediate complications. Procedure: Pre-Anesthesia Assessment: - Prior to the procedure, a History and Physical was performed, and patient medications and allergies were reviewed. The risks and benefits of the procedure and the sedation options and risks were discussed with the patient. All questions were answered and informed consent was obtained. Patient identification and proposed procedure were verified by the physician. Mental Status Examination: normal. Prophylactic Antibiotics: The patient does not require prophylactic antibiotics. Prior Anticoagulants: The patient has taken no anticoagulant or antiplatelet agents. ASA Grade Assessment: III - A patient with severe systemic disease. After reviewing the risks and benefits, the patient was deemed in satisfactory condition to undergo the procedure. The anesthesia plan was to use monitored anesthesia care (MAC). Immediately prior to administration of medications, the patient was re-assessed for adequacy to receive sedatives. The heart rate, respiratory rate, oxygen saturations, blood pressure, adequacy of pulmonary ventilation, and response to care were monitored throughout the procedure. The physical status of the patient was re-assessed after the procedure. After obtaining informed consent, the endoscope was passed under direct vision. Throughout the procedure, the patient's blood pressure, pulse, and oxygen saturations were monitored continuously. The Endoscope was introduced through the mouth, and advanced to the second part of duodenum. The upper GI endoscopy was accomplished without difficulty. The patient tolerated the procedure well. Scope In: 3:35:46 PM Scope Out: 3:41:37 PM Total Procedure Duration Time 0 hours 5 minutes 51 seconds Findings: The examined esophagus was normal. One non-bleeding cratered gastric ulcer with no stigmata of bleeding was found in the gastric body. The lesion was 10 mm in largest dimension. Biopsies were taken with a cold forceps for histology. Verification of patient identification for the specimen was done. Estimated blood loss was minimal. Biopsies were taken with a cold forceps for Helicobacter pylori testing. Verification of patient identification for the specimen was done. Estimated blood loss was minimal. Two oozing cratered gastric ulcers with pigmented material were found in the gastric antrum. The largest lesion was 7 mm in largest dimension. Area was successfully injected with 10 mL of a 0.2 mg/mL solution of epinephrine for drug delivery. Coagulation for hemostasis using heater probe was successful. Estimated blood loss was minimal. The first portion of the duodenum was normal. Impression: - Normal esophagus. - Non-bleeding gastric ulcer with no stigmata of bleeding. Biopsied. - Oozing gastric ulcers with pigmented material. Injected. Treated with a heater probe. - Normal first portion of the duodenum. Recommendation: - Return patient to hospital dennison for ongoing care. - Full liquid diet for 4 days. - Continue present medications. - Await pathology results. - Repeat upper endoscopy in 3 months for surveillance. Procedure Code(s): --- Professional --- 77014, 59, Esophagogastroduodenoscopy, flexible, transoral; with control of bleeding, any method 21297, Esophagogastroduodenoscopy, flexible, transoral; with biopsy, single or multiple 26985, 59,51, Esophagogastroduodenoscopy, flexible, transoral; with directed submucosal injection(s), any substance CPT copyright 202 [employer]. All rights reserved. The codes documented in this report are preliminary and upon sheet hanger review may be revised to meet current compliance requirements. Javier Osuna DO 10/15/2023 3:47:21 PM This report has been signed electronically. Number of Addenda: 0 Note Initiated On: 10/15/2023 3:13 PM
--- NOTE | 2023-10-15 16:14 | SUR.PHASEI ---
PERSISTENT COUGH IN PACU, PHASE 1. OFFERED SIPS OF H2O. PATIENT TOLERATED WELL. CLEAR SECRETIONS, PRODUCTIVE.
[2023-10-15] MEDS: Sucralfate 1 GM Tablet PO (17:53)
--- NOTE | 2023-10-15 18:19 | PCM.PN.HOSP ---
Reason for Visit Reason for Visit: Diagnoses Gastritis, unspecified, without bleeding (10/14/23) Unspecified lump in unspecified breast (10/14/23) Subjective Subjective Patient was seen and examined today, I talked to her family who was in her room. Patient underwent endoscopy today, I saw her earlier today before she underwent the endoscopy. According to gastroenterology, there were bleeding ulcers detected on endoscopy today and they recommended the patient stay in the hospital until tomorrow. I will repeat the patient's CBC in the morning Objective Data Objective Data Vital Signs: Vital Signs Temp Pulse Resp BP Pulse Ox O2 Del Method O2 Flow Rate 98.0 F 82 16 100/69 98 Nasal Cannula 2 10/15/23 16:45 10/15/23 16:45 10/15/23 16:45 10/15/23 16:45 10/15/23 16:45 10/15/23 16:45 10/15/23 16:45 Oxygen Flow Rate (L/min) 2 Oxygen Delivery Method Nasal Cannula Weight: 45.359 kg Body Mass Index (BMI) 16.6 Intake & Output: Intake and Output for Last 24 Hours 10/13/23 10/14/23 10/15/23 23:59 23:59 23:59 Intake Total 2160 / 2160 710 / 710 Output Total 650 / 650 Balance 2160 / 2160 60 / 60 Medical Nutrition Assessment Dietitian: Malnutrition Criteria Met Start: 10/15/23 13:56 Freq: Status: Active Protocol: Document 10/15/23 13:56 RMA (Rec: 10/15/23 13:56 RMA [id number]) Nutrition Malnutrition Evidence of Malnutrition Exists Yes Malnutrition (severe): Acute Illness/Injury,Chronic Evidenced By Suboptimal Energy Intake ( Severe),Weight Loss (Moderate) ,Physical Changes (Severe) Intake Problem Inadequate Oral Intake Etiology related to altered GI function /bleed Signs/Symptoms as evidenced by NPO Status Active Problem Clinical Problem Acute Disease or Injury Related Malnutrition Etiology severe pro-elo malnutrition in the context of acute on chronic disease related to increased energy expenditure and inadequate oral intake Signs/Symptoms as evidenced by BMI 16.6, PO meeting less than 50% estimated nutrition needs x 2 weeks, BLLE 2+ pitting edema likely masking additional weight loss and muscle wasting /fat depletion in the face, orbitals, clavicle, arms and legs. Status Active Problem Recommendation Dietitian Recommendations/Changes Recommend advance PO as tolerated to transitional diet with goal of liberalized regular diet. Offer ONS ensure clear vs. ensure plus HP w/ medpass 4 times per day as diet advanced from NPO. Adjust ONS to optimize oral intake as diet advanced from NPO. Follow weight trends as available. Lab / Micro Data 10/15/23 07:15 10/15/23 07:15 Labs: Laboratory Results - last 24 hr 10/14/23 19:35: Lactic Acid 2.2 H* 10/14/23 20:20: Hgb 6.1 L, Hct 19.3 L 10/14/23 21:23: Antibody Screen NEGATIVE, Crossmatch See Detail 10/15/23 07:15: WBC 11.6 H, RBC 3.10 L, Hgb 9.0 L, Hct 27.6 L, MCV 89.0 D, MCH 29.0, MCHC 32.6, RDW Std Deviation 51.5 H, RDW Coeff of John 16.4 H, Plt Count 138 L, MPV 10.2, Immature Gran % (Auto) 0.600, Neut % (Auto) 78.6 H, Lymph % (Auto) 13.6 L, [place] % (Auto) 7.1, Eos % (Auto) 0.0, Baso % (Auto) 0.1, Absolute Neuts (auto) 9.1 H, Absolute Lymphs (auto) 1.58, Nucleated RBC % 0, Sodium 144, Potassium 4.1, Chloride 115 H, Carbon Dioxide 25.0, Anion Gap 4 L, BUN 51 H, Creatinine 0.73, Estim Creat Clear Calc 38.15, Est GFR (MDRD) Af Amer 99, Est GFR (MDRD) Non-Af 81, BUN/Creatinine Ratio 70.2 H, Glucose 98, Calcium 7.9 L Micro: Microbiology 10/14/23 16:25 Stool Stool Occult Blood (CHRISS) - Final Physical Exam Const alert, oriented x3 and no apparent distress Constitutional Narrative: Patient is alert and elderly General Appearance: cooperative, well kempt and well developed Orientation / Consciousness: awake, oriented to person, oriented to place and oriented to time HEENT normocephalic, head/scalp atraumatic and moist oral mucous membranes Eyes PERRL, EOMs intact bilaterally and conjunctivae normal Neck supple, no JVD, thyroid normal and no carotid bruits General: trachea midline Resp normal respiratory effort, no retractions, no use of accessory muscles and clear to auscultation bilaterally Auscultation: Negative for rales, rhonchi or wheezes Cardio regular rate, regular rhythm, no murmurs, no rub and no gallops GI normal to inspection, nondistended, normoactive bowel sounds, soft to palpation, non-tender and non-distended Extremity no clubbing, cyanosis or edema Skin no rashes or lesions noted General Skin Exam: no breakdown Neuro oriented x3, CN's II-XII intact bilaterally, moves all extremities, no focal motor deficits and no sensory deficits noted Sensorium / Orientation: awake and alert Speech: speech normal Psych affect normal Assessment & Plan Assessment/Plan (1) Gastritis: PLAN: Plan 1. Acute blood loss anemia from acute bleeding ulcers in the stomach-patient will remain on a PPI, CBC will be repeated tomorrow #2 probable breast cancer-patient's family states that the patient does not want a lump in her breast worked up, she does not want a biopsy or any imaging studies. #3 glaucoma-patient remains on her current eyedrops Total clinical time spent by myself addressing the patient's medical issues, reviewing all of her data, and collaborating with patient's care team: 35 minutes Charges/Coding Visit Charges Inpatient E&M: 89353 Subs Hosp L2
[2023-10-15] MEDS: 0.9% Saline Lock 10 ML Syringe IV (20:07)
[2023-10-16 04:22] VITALS: BP 96/78; PULSE 87; RESP 14; TEMP 36.6; O2SAT 98
[2023-10-16] MEDS: Sucralfate 1 GM Tablet PO ×2 (06:47→11:04)
[2023-10-16 09:20] VITALS: BP 91/68; PULSE 83; RESP 16; TEMP 36.9; O2SAT 96
[2023-10-16] MEDS: Pantoprazole Sodium 40 MG in 0.9% Normal Saline (100mL MB+) 100 ML 330 MG IV (09:23)
--- NOTE | 2023-10-16 09:36 | DCINST_ITS ---
Discharge Instructions Diet Discharge Diet: No restrictions Follow Up Care Test Results: Test results from this visit will be discussed in further detail at your follow- up appointment, if applicable. Discharge Plan Admission Admit Date/Time: 10/14/23 18:12 Attending Provider: Donnie Palomo Primary Care Provider: José Miguel Horn Consulting Providers: Indra Boykin Discharge Orders/Prescriptions Prescriptions: No Action latanoprost 0.005 % drops 1 drp ophthalmic (eye) DAILY brimonidine 0.2 % drops 2 drp ophthalmic (eye) BID timolol maleate 0.5 % drops 1 drp ophthalmic (eye) BID sulfamethoxazole-trimethoprim [Bactrim] 400-80 mg tablet 1 tab PO DAILY Patient Comments: takes daily Referrals / Follow Up: NOT,DEFINED [Non-Staff] - José Miguel Horn, DO [Primary Care Provider] -
--- NOTE | 2023-10-16 09:36 | PCM.DC ---
Discharge Instructions Diet Discharge Diet: No restrictions Activity Discharge Activity: Return to Normal Activity Weight Bearing Status: Weight bearing as tolerated Follow Up Care Test Results: Test results from this visit will be discussed in further detail at your follow-up appointment, if applicable. Discharge Plan Admission Admit Date/Time: 10/14/23 18:12 Primary Reason for Your Visit: stomach ulcers, anemia Attending Provider: Donnie Palomo Primary Care Provider: José Miguel Horn Consulting Providers: Indra Boykin Discharge Orders/Prescriptions Prescriptions: New sucralfate 1 gram Tablet 1 g PO TID@0700,1100,1600 Qty: 90 1RF pantoprazole [Protonix] 40 mg tablet,delayed release (DR/EC) 40 mg PO DAILY Qty: 30 1RF Continued latanoprost 0.005 % drops 1 drp ophthalmic (eye) DAILY brimonidine 0.2 % drops 2 drp ophthalmic (eye) BID timolol maleate 0.5 % drops 1 drp ophthalmic (eye) BID sulfamethoxazole-trimethoprim [Bactrim] 400-80 mg tablet 1 tab PO DAILY Patient Comments: takes daily Referrals / Follow Up: José Miguel Horn DO [Primary Care Provider] - Within 2 Weeks (recheck your CBC) NOT,DEFINED [Non-Staff] - Disposition Disposition (needs filled in before D/C Order can be placed): Home, Self Care
--- NOTE | 2023-10-16 09:44 | DS.PCM_ITS ---
Providers Date of Admission: 10/14/23 Date of Discharge: 10/16/23 Primary Care Physician: Dr. José Miguel Horn, Consultations 10/14/23 19:28 Consult: Gastroenterology Routine Consulting Provider: Kalpesh Gastroenterology Reason for Consult: UGIB EMERGENT Consult: No MD Notified: Yes Date Notified: 10/15/23 Time Notified: 06:37 Method of Notification: Text Reason For Visit: GI BLEED Diagnosis Discharge Diagnosis (1) Gastritis: Status: Acute Code(s): K29.70 - Gastritis, unspecified, without bleeding Plan 1. Acute blood loss anemia from acute bleeding ulcers in the stomach-patient will remain on a PPI, CBC will be repeated tomorrow #2 probable breast cancer-patient's family states that the patient does not want a lump in her breast worked up, she does not want a biopsy or any imaging studies. She is aware it could be cancer. #3 glaucoma-patient remains on her current eyedrops #4 severe acute protein and caloric malnutrition in the context of acute on chronic disease related to increased energy expenditure and inadequate oral intake as evidenced by BMI of 16.6, p.o. meeting less than 50% of estimated nutritional needs x 2 weeks, fat depletion in the face orbitals clavicle arms and legs-nutritional services saw patient and her diet was adjusted Total clinical time spent by myself addressing the patient's medical issues, reviewing all of her data, and collaborating with patient's care team: 35 minutes Medications at Discharge Home Medications brimonidine 0.2 % eye drops 2 drp ophthalmic (eye) BID eye health 10/14/23 latanoprost 0.005 % eye drops 1 drp ophthalmic (eye) DAILY eye health 10/14/23 sulfamethoxazole 400 mg-trimethoprim 80 mg tablet (Bactrim) 1 tab PO DAILY emphysema 10/14/23 timolol maleate 0.5 % eye drops 1 drp ophthalmic (eye) BID 10/14/23 pantoprazole 40 mg tablet,delayed release (Protonix) 40 mg PO DAILY #30 tabs 10/16/23 sucralfate 1 gram tablet 1 g PO TID@0700,1100,1600 #90 tabs 10/16/23 Hospital Course Operations None Procedures Blood transfusion and EGD Summary of Care Provided Minutes Spent on Discharge: 31 Hospital Course: This 83-year-old white female presented to the emergency room at [facility] after having dark bowel movements as well as coffee-ground emesis. Fecal occult was negative in the emergency room, her hemoglobin was low at 8.1. Lactic acid was noted to be elevated at 3, urinalysis was unremarkable. CT of the abdomen pelvis was negative for any significant intra-abdominal pathology, it was noted that there was a mass in her right breast consistent with malignancy, the emergency room physician discussed this with the family and the family was aware that there could be a problem but the patient did not want it worked up at all. Patient was admitted to PCU, she was seen in consultation by gastroenterology, labs were monitored, she received 2 units of packed red blood cells. Patient underwent an EGD which showed nonbleeding gastric ulcer with no stigmata of bleeding, there was also noted to be oozing gastric ulcers with pigmented material, these were injected and treated with a heater probe. On 10/16/2023, patient was seen and examined: On examination she appeared frail and elderly, she does not appear to be in any distress. Vital signs as documented. Skin warm and dry and without overt rashes. Neck without JVD, thyroid appears normal, trachea is midline, neck is supple. Lungs clear, normal air movement was noted. Heart exam notable for regular rhythm, normal sounds and absence of murmurs, rubs or gallops. Abdomen unremarkable and without evidence of organomegaly, masses, or abdominal aortic enlargement, bowel sounds are present in all 4 quadrants, no abdominal tenderness was noted. Extremities non edematous, no cyanosis was noted, no clubbing was noted. Neuro: Cranial nerves II through XII are grossly intact, no focal motor deficits were noted, sensation to light touch and pinprick is intact, motor exam 5/5 throughout. Psych: Patient is alert and oriented x3, she does not appear anxious or depressed, she does not appear agitated. Patient was discharged home in stable condition on 10/16/2023 Medical Records Data Medical Nutrition Assessment Dietitian: Malnutrition Criteria Met Start: 10/15/23 13: 56 Freq: Status: Active Protocol: Document 10/15/23 13:56 RMA (Rec: 10/15/23 13:56 RMA [id number]) Nutrition Malnutrition Evidence of Malnutrition Exists Yes Malnutrition (severe): Acute Illness/Injury,Chronic Evidenced By Suboptimal Energy Intake ( Severe),Weight Loss (Moderate) ,Physical Changes (Severe) Intake Problem Inadequate Oral Intake Etiology related to altered GI function /bleed Signs/Symptoms as evidenced by NPO Status Active Problem Clinical Problem Acute Disease or Injury Related Malnutrition Etiology severe pro-elo malnutrition in the context of acute on chronic disease related to increased energy expenditure and inadequate oral intake Signs/Symptoms as evidenced by BMI 16.6, PO meeting less than 50% estimated nutrition needs x 2 weeks, BLLE 2+ pitting edema likely masking additional weight loss and muscle wasting /fat depletion in the face, orbitals, clavicle, arms and legs. Status Active Problem Recommendation Dietitian Recommendations/Changes Recommend advance PO as tolerated to transitional diet with goal of liberalized regular diet. Offer ONS ensure clear vs. ensure plus HP w/ medpass 4 times per day as diet advanced from NPO. Adjust ONS to optimize oral intake as diet advanced from NPO. Follow weight trends as available. Weight / BMI Weight Weight: 45.359 kg Body Mass Index (BMI) 16.6 ABG / Lab / Microbiology Data 10/16/23 09:47 10/15/23 07:15 Microbiology: Microbiology 10/14/23 16:25 Stool Stool Occult Blood (CHRISS) - Final D/C Instructions Discharge Diet: No restrictions Weight Bearing Status: Weight bearing as tolerated Meaningful Use Info Meaningful Use Diagnoses (Choose all that apply): None applicable Discharge Plan Admission Admit Date/Time: 10/14/23 18:12 Primary Reason for Your Visit: stomach ulcers, anemia Attending Provider: Donnie Palomo Primary Care Provider: José Miguel Horn Consulting Providers: Indra Boykin Discharge Orders/Prescriptions Prescriptions: New sucralfate 1 gram Tablet 1 g PO TID@0700,1100,1600 Qty: 90 1RF pantoprazole [Protonix] 40 mg tablet,delayed release (DR/EC) 40 mg PO DAILY Qty: 30 1RF Continued latanoprost 0.005 % drops 1 drp ophthalmic (eye) DAILY brimonidine 0.2 % drops 2 drp ophthalmic (eye) BID timolol maleate 0.5 % drops 1 drp ophthalmic (eye) BID sulfamethoxazole-trimethoprim [Bactrim] 400-80 mg tablet 1 tab PO DAILY Patient Comments: takes daily Referrals / Follow Up: José Miguel Horn DO [Primary Care Provider] - Within 2 Weeks (recheck your CBC) NOT,DEFINED [Non-Staff] - Disposition Disposition (needs filled in before D/C Order can be placed): Home, Self Care Charges/Coding Visit Charges Inpatient E&M: 85908 Disch Hosp >30min
[2023-10-16 10:02] LABS: Hematocrit 28.8 % (37-47); Hemoglobin 9.1 g/dL (12.0-15.0)
--- NOTE | 2023-10-16 11:28 | CASEMGMT ---
Patient has order for discharge. RN CM in to discuss needs at discharge with patient and family. Family deny needs for HHC or therapy at discharge, patient at baseline. Family has transportation arranged for discharge and just need patient taken to vehicle via wheelchair. Family denies further questions or concerns at this time.
== END 2023-10-16 12:39 | disposition home or self-care (01) | DRG 377 ==
LOC: ED 18:03 → PCU 18:39
PROVIDERS: Internal Medicine Gastroenterology; Admitting Provider Family Medicine; Emergency Provider Emergency Medicine; PCP Family Medicine; Visit Provider Internal Medicine
PROC: 0DJ08ZZ Inspection of Upper Intestinal Tract, Via Natural or Artificial Opening Endoscopic (ICD-10-PCS; CPT 43235; principal; 2023-10-15 13:55)
DX: K25.4 Chronic or unspecified gastric ulcer with hemorrhage (principal); E43 Unspecified severe protein-calorie malnutrition; E87.20 Acidosis, unspecified; D62 Acute posthemorrhagic anemia; Z68.1 Body mass index [BMI] 19.9 or less, adult; C50.911 Malignant neoplasm of unspecified site of right female breast; E86.0 Dehydration; J43.9 Emphysema, unspecified; E61.1 Iron deficiency; I45.10 Unspecified right bundle-branch block; K29.70 Gastritis, unspecified, without bleeding; R00.0 Tachycardia, unspecified; I49.3 Ventricular premature depolarization; H40.9 Unspecified glaucoma
CPT/HCPCS: 36415; 74018; 74177; 80048; 80053; 81001; 82274; 83605; 85014; 85018; 85025; 86850; 86900; 86901; 86920; 86922; 87040; 88305; 88312; 88342; 93005; 97802; 99285; J7030; J7040; J7050; J7120; P9016; P9612; Q9967; A4216; J2405